=== PATIENT | female | born 1960 | race Caucasian/White ===

== ENCOUNTER 2019-01-21 11:31 | Emergency (ER) | payer BC ==
[~2019-01-21] VITALS: Ht 170.2 cm; Wt 84.1 kg
[~2019-01-21 11:31] MED LIST: ATOR20TA66 PO; LEVO100T9 PO; LEVO750T46 PO; MELO-102 PO
[2019-01-21 12:21] VITALS: BP 116/76
[2019-01-21 13:23] LABS: CLARITY,URINE CLEAR (Clear); COLOR,URINE YELLOW (Yellow); GLUCOSE, URINE NEGATIVE (Neg); KETONES,URINE NEGATIVE (Neg); LEUKOCYTE ESTERASE ,URINE NEGATIVE (Neg); NITRITES, URINE NEGATIVE (Neg); OCCULT BLOOD,URINE NEGATIVE (Neg); PROTEIN,URINE NEGATIVE (Neg); UROBILINOGEN,URINE 0.2 E.U/dL (0.2-1.0)
[2019-01-21 13:27] LABS: UA COLLECTION TYPE CLN CATCH MIDSTREAM
[2019-01-21 13:53] LABS: BASOPHILS # (AUTO) 0.1 X10'3 (0-0.2); EOSINOPHILS # (AUTO) 0.1 X10'3 (0-0.9); EOSINOPHILS % (AUTO) 2.1 % (0-6); HEMATOCRIT 39.1 % (35.0-45.0); HEMOGLOBIN 13.6 g/dl (12.0-16.0); LYMPHOCYTES # (AUTO) 2.1 X10'3 (1.1-4.8); LYMPHOCYTES % (AUTO) 30.3 % (21-51); MEAN CORPUSCULAR HEMOGLOBIN 28.7 PG (27.0-31.0); MEAN CORPUSCULAR HGB CONC 34.8 g/dL (33.0-36.5); MEAN CORPUSCULAR VOLUME 82.6 FL (78-98); MEAN PLATELET VOLUME 7.2 FL (7.4-10.4); MONOCYTES # (AUTO) 0.6 X10'3 (0-0.9); NEUTROPHILS % (AUTO) 57.6 % (42-75); PLATELET COUNT 345 X10'3 (140-440); RED BLOOD COUNT 4.73 X10'6 (4.20-5.60); RED CELL DISTRIBUTION WIDTH 13.3 % (11.5-14.5); WHITE BLOOD COUNT 6.9 X10'3 (4.5-11.0)
[2019-01-21 14:12] LABS: ALANINE AMINOTRANSFERASE 42 U/L (12-78); ALBUMIN 3.8 G/DL (3.4-5.0); ALBUMIN/GLOBULIN RATIO 0.9 (1.1-1.5); ALKALINE PHOSPHATASE 88 IU/L (46-116); ANION GAP 8 (8-16); ASPARTATE AMINO TRANSFERASE 19 U/L (10-37); BILIRUBIN,TOTAL 0.5 MG/DL (0.1-1.0); BLOOD UREA NITROGEN 18 MG/DL (7-18); BUN/CREATININE RATIO 15.7 (6.6-38.0); CALCIUM 9.7 MG/DL (8.5-10.1); CHLORIDE 102 MMOL/L (99-107); CREATININE 1.15 MG/DL (0.40-0.90); GLUCOSE 90 MG/DL (70-104); POTASSIUM 3.7 MMOL/L (3.5-5.1); SODIUM 136 MMOL/L (135-145); TOTAL CARBON DIOXIDE 25.6 MMOL/L (24-32); TOTAL PROTEIN 8.2 G/DL (6.4-8.2); eGFR 48 ML/MIN
--- NOTE | 2019-01-21 15:12 | NUR ---
[facility]
== END 2019-01-21 15:21 | disposition home or self-care (01) ==
LOC: ER 11:32
DX: R10.9 Unspecified abdominal pain (principal); R53.1 Weakness; E03.9 Hypothyroidism, unspecified; N12 Tubulo-interstitial nephritis, not specified as acute or chronic; Z79.899 Other long term (current) drug therapy
CPT/HCPCS: 36415; 80053; 81003; 85025; 85610; 99283